=== PATIENT | male | born 1945 | race Caucasian/White ===

== ENCOUNTER 2017-03-19 14:02 | Outpatient (CLI) | payer MEDICARE ==
[2017-03-19 14:53] LABS: ALT (SGPT) 22 U/L (0-55); AST (SGOT) 22 U/L (5-34); Albumin 3.9 g/dL (3.4-4.8); Alkaline Phosphatase 117 U/L (40-150); Anion Gap 15 mmol/L (10-20); BUN (Urea Nitrogen) 22 mg/dL (8.4-25.7); Bilirubin, Total 0.5 mg/dL (0.2-1.2); Calc. Creatinine Clearance 0 mL/min (70-130); Calcium 8.7 mg/dL (7.8-10.44); Carbon Dioxide 26 mmol/L (23-31); Chloride 95 mmol/L (98-107); Estimated GFR-MDRD 66; Globulin 2.7 g/dL (2.4-3.5); Glucose 98 mg/dL (80-115); Potassium 3.8 mmol/L (3.5-5.1); Protein, Total 6.6 g/dL (5.8-8.1); Sodium 132 mmol/L (136-145)
[2017-03-19 14:58] LABS: Band 4 % (5-11); Hemoglobin 11.4 g/dL (14.0-18.0); Lymphocytes 6 % (21-51); MDiff Complete? YES; Mean Corpuscular HGB CONC 32.4 g/dL (32.0-36.0); Mean Corpuscular Hemoglobin 26.4 pg (27.0-31.0); Mean Corpuscular Volume 81.5 fl (80.0-94.0); Mean Platelet Volume 8.5 fL (7.4-10.4); Monocytes 13 % (0-10); Neutrophil 76 % (42-75); PLT Morphology Comment Appears Adequate; Platelet Count 237 thou/uL (130-400); RBC Distribution Width 15.2 % (11.5-14.5); Red Blood Cell (RBC) Count 4.32 mill/uL (4.70-6.10); White Blood Cell (WBC) Count 13.3 thou/uL (4.8-10.8)
== END 2017-03-19 14:03 ==
LOC: MADLABBHPM 14:02
PROVIDERS: ATTEND Family Medicine
DX: R82.90 Unspecified abnormal findings in urine (principal)
CPT/HCPCS: 36415; 80053; 84153; 84154; 85025; 87086

== ENCOUNTER 2017-04-27 01:13 | Emergency (ER) | payer MEDICARE ==
[2017-04-27] MEDS ORDERED: Sodium Bicarb 50 MEQ/50 ML Abboject 8.4% SYRINGE ONE (07:06)
[2017-04-27] MEDS ORDERED: EPINEPHrine 1 MG/10 ML Abboject SYRINGE ONE (07:06)
[2017-04-27] MEDS ORDERED: Sodium Chloride 0.9% 1,000 ML BAG ONE (07:06)
--- NOTE | 2017-04-27 08:43 | RAD ---
CHEST 1 VIEW: HISTORY: Tube placement. COMPARISON: None. FINDINGS: An endotracheal tube tip is felt to be seen just above the level of the clavicles. Enteric tube is present with tip below the diaphragm out of the field of view. There is a small left pneumothorax. There is severe subcutaneous emphysema. IMPRESSION: 1. Endotracheal tube tip is felt to be below the level of the clavicles. Recommend advancing 2-3 c m. 2. Enteric tube tip not well seen, although below the diaphragm and out of the field of view. 3. Small left pneumothorax and possible rib fractures on the left. 4. Severe subcutaneous emphysema. POS: [facility]
== END 2017-04-27 01:40 | disposition expired ==
LOC: MADERS 01:13
DX: I46.9 Cardiac arrest, cause unspecified (principal)
CPT/HCPCS: 71010; 96374; 96375; J0171; J7050